=== PATIENT | male | born 1980 | race Caucasian/White ===

== ENCOUNTER 2018-01-26 08:24 | Emergency (ER) | payer OTHER ==
[~2018-01-26] VITALS: Ht 177.8 cm; Wt 86.2 kg
== END 2018-01-26 10:37 | disposition home or self-care (01) ==
LOC: ER 08:24 → EDSEX 08:53 → ER 10:37
DX: K08.89 Other specified disorders of teeth and supporting structures (principal)

== ENCOUNTER → 2018-01-27 | Emergency (ER) | payer OTHER ==
[~2018-01-27] VITALS: Ht 177.8 cm; Wt 86.2 kg
== END | disposition home or self-care (01) ==
LOC: ER 02:03 → EDSEX 02:04 → ER 02:04
DX: R22.0 Localized swelling, mass and lump, head (principal); K04.7 Periapical abscess without sinus